=== PATIENT | male | born 1975 | race Caucasian/White ===

== ENCOUNTER 2017-01-21 10:54 | Inpatient (IN) | payer SELFPAY ==
[~2017-01-21] VITALS: Ht 167.6 cm; Wt 83.7 kg
[2017-01-21] MEDS ORDERED: METF500T4 PO (10:57)
[2017-01-21] MEDS ORDERED: LORAZEPAM 2MG/ML CPJ IV STA (11:34)
[2017-01-21] MEDS ORDERED: ONDANSETRON HCL 4MG/2ML VIAL IV ONE (11:45)
[2017-01-21] MEDS ORDERED: SODIUM CHLORIDE 0.9% 1,000 ML IV ONE (11:45)
[2017-01-21] MEDS ORDERED: LORAZEPAM 1MG TABLET PO STA (11:53)
[2017-01-21 12:09] LABS: BASOPHILS % 0.5 % (0.0-2.0); EOSINOPHILS % 0.2 % (0.0-5.0); HEMOGLOBIN. 13.8 g/dL (14.0-18.0); LYMPHOCYTES % 20.7 % (20.0-50.0); MEAN CORPUSCULAR VOLUME 82.2 fL (80.0-94.0); MEAN PLATELET VOLUME 6.3 fl (7.4-10.4); MONOCYTES % 7.5 % (2.0-8.0); NEUTROPHILS % 71.1 % (40.0-76.0); PLATELET 208 x1000/uL (130-400); RED BLOOD CELL COUNT 5.11 mill/uL (4.7-6.1); RED CELL DISTRIBUTION WIDTH 13.7 % (11.6-14.6)
[2017-01-21 12:15] LABS: INR 1.1; PROTHROMBIN TIME 11.7 sec (9.4-11.6)
[2017-01-21 12:30] LABS: CARBON DIOXIDE 26 mEq/L (21-32); CHLORIDE 93 mEq/L (98-107); CREATINE KINASE 209 IU/L (39-308); ETHANOL BLOOD 111 mg/dL
[2017-01-21 12:40] LABS: CLARITY URINE CLEAR (CLEAR); COLOR URINE YELLOW (YELLOW); GLUCOSE URINE NEGATIVE (NEGATIVE); KETONES URINE NEGATIVE (NEGATIVE); LEUKOCYTE ESTERASE URINE NEGATIVE (NEGATIVE); NITRITE URINE NEGATIVE (NEGATIVE); OCCULT BLOOD URINE NEGATIVE (NEGATIVE); PH URINE 6.5 (4.5-8.0); PROTEIN URINE 1+ (NEGATIVE); SPECIFIC GRAVITY URINE 1.009 (1.005-1.030); UROBILINOGEN URINE 0.2 E.U./dL (0.2-1.0)
[2017-01-21 13:14] LABS: *AMPHETAMINES SCREEN URINE NEGATIVE (NEGATIVE); *BARBITURATES SCREEN URINE NEGATIVE (NEGATIVE); *BENZODIAZEPINES SCREEN URINE NEGATIVE (NEGATIVE); *COCAINE SCREEN URINE NEGATIVE (NEGATIVE); CANNABINOID URINE SCREEN NEGATIVE (NEGATIVE); METHADONE URINE SCREEN NEGATIVE (NEGATIVE); OPIATES URINE SCREEN NEGATIVE (NEGATIVE); PHENCYCLIDINE URINE SCREEN NEGATIVE (NEGATIVE)
[2017-01-21] MEDS ORDERED: MIDAZOLAM HCL 2 MG/2 ML VIAL IV ONE (15:45)
[2017-01-21] MEDS ORDERED: IPRATROPIUM/ALBUTEROL 0.5-3(2.5)MG/3ML NEB INH PRN (19:15)
[2017-01-21] MEDS ORDERED: ONDANSETRON HCL 4MG/2ML VIAL IV PRN (19:15)
[2017-01-21] MEDS ORDERED: MAGNESIUM/ALUMINUM HYDROXIDE/SIMETHICONE 30ML UDC PO PRN (19:15)
[2017-01-21] MEDS ORDERED: CLONIDINE 0.1MG TABLET PO PRN (19:15)
[2017-01-21 20:20] VITALS: BP 146/85
[2017-01-21] MEDS ORDERED: MVI, ADULT NO.1 10 ML, FOLIC ACID 1 MG, THIAMINE HCL 100 MG in SODIUM CHLORIDE 0.9% 1,0... IV SCH ×4 (20:30)
[2017-01-21 20:45] VITALS: BP 146/85
[2017-01-21] MEDS: ENOXAPARIN 40MG/0.4ML SYR SUBCUT SCH (21:32)
[2017-01-21] MEDS: CHLORDIAZEPOXIDE 25MG CAPSULE PO SCH (21:32)
[2017-01-21] MEDS: SODIUM CHLORIDE 0.9% 1,000 ML IV SCH (21:32)
[2017-01-21 23:49] LABS: CREATINE KINASE 156 IU/L (39-308); TROPONIN I < 0.02 ng/mL (0.00-0.04)
[2017-01-21 23:51] LABS: CREATINE KINASE MB FRACTION 1.9 ng/mL (0.5-3.6)
[2017-01-22] VITALS: BP 118/76
[2017-01-22] MEDS: ACETAMINOPHEN 325MG TABLET PO PRN (00:17)
[2017-01-22] MEDS ORDERED: DEXTROSE 50% WATER 50ML SYRINGE IV PRN (00:45)
[2017-01-22 04:00] VITALS: BP 146/62
[2017-01-22] MEDS: CHLORDIAZEPOXIDE 25MG CAPSULE PO SCH ×3 (05:43→21:14)
[2017-01-22] MEDS: INSULIN LISPRO 100 UNITS/ML SUBCUT SCH ×4 (05:48→21:45)
[2017-01-22] MEDS: BLOOD SUGAR DIAGNOSTIC STRIP TEST SCH ×4 (05:48→21:04)
[2017-01-22 07:11] LABS: BASOPHILS % 0.4 % (0.0-2.0); EOSINOPHILS % 0.7 % (0.0-5.0); HEMATOCRIT. 38.9 % (42.0-52.0); HEMOGLOBIN. 12.9 g/dL (14.0-18.0); LYMPHOCYTES % 35.9 % (20.0-50.0); MEAN CORPUSCULAR HEMOGLOBIN 27.7 pg (28.0-32.0); MEAN CORPUSCULAR VOLUME 83.4 fL (80.0-94.0); MEAN PLATELET VOLUME 6.8 fl (7.4-10.4); MONOCYTES % 12.4 % (2.0-8.0); NEUTROPHILS % 50.6 % (40.0-76.0); PLATELET 166 x1000/uL (130-400); RED BLOOD CELL COUNT 4.66 mill/uL (4.7-6.1); RED CELL DISTRIBUTION WIDTH 13.3 % (11.6-14.6)
[2017-01-22 07:52] LABS: CARBON DIOXIDE 28 mEq/L (21-32); CHLORIDE 95 mEq/L (98-107); CREATINE KINASE 118 IU/L (39-308); CREATINE KINASE MB FRACTION 1.3 ng/mL (0.5-3.6); HDL CHOLESTEROL 58 mg/dL (40-59); LDL CHOLESTEROL 70 mg/dL (5-100); TROPONIN I < 0.02 ng/mL (0.00-0.04)
[2017-01-22 08:43] VITALS: BP 147/74
[2017-01-22] MEDS: SODIUM CHLORIDE 0.9% 1,000 ML IV SCH ×2 (09:30→22:09)
[2017-01-22] MEDS: METFORMIN HCL 500MG TABLET PO SCH ×2 (09:50→19:04)
[2017-01-22] MEDS: FOLIC ACID 1MG TABLET PO SCH (09:50)
[2017-01-22] MEDS: LORAZEPAM 0.5MG TABLET PO PRN (09:50)
[2017-01-22] MEDS: MULTIVITAMINS,THER W-MINERALS TABLET PO SCH (09:50)
[2017-01-22] MEDS: THIAMINE HCL 100MG TABLET PO SCH (09:50)
[2017-01-22 13:19] VITALS: BP 174/80
[2017-01-22] MEDS ORDERED: FOLI-43 PO (13:26)
[2017-01-22] MEDS ORDERED: THIA100T72 PO (13:26)
[2017-01-22 16:00] VITALS: BP 153/84
[2017-01-22 20:00] VITALS: BP 152/86
[2017-01-22] MEDS: ENOXAPARIN 40MG/0.4ML SYR SUBCUT SCH (21:14)
[2017-01-23] VITALS: BP 140/80
[2017-01-23 04:00] VITALS: BP 144/85
[2017-01-23] MEDS: LORAZEPAM 0.5MG TABLET PO PRN (05:05)
[2017-01-23] MEDS: CHLORDIAZEPOXIDE 25MG CAPSULE PO SCH (06:33)
[2017-01-23] MEDS: BLOOD SUGAR DIAGNOSTIC STRIP TEST SCH (06:37)
[2017-01-23] MEDS: INSULIN LISPRO 100 UNITS/ML SUBCUT SCH (06:37)
[2017-01-23 08:00] VITALS: BP 144/86
[2017-01-23] MEDS: ACETAMINOPHEN 325MG TABLET PO PRN (08:04)
[2017-01-23] MEDS: FOLIC ACID 1MG TABLET PO SCH (08:05)
[2017-01-23] MEDS: MULTIVITAMINS,THER W-MINERALS TABLET PO SCH (08:05)
[2017-01-23] MEDS: THIAMINE HCL 100MG TABLET PO SCH (08:05)
[2017-01-23] MEDS: METFORMIN HCL 500MG TABLET PO SCH (08:05)
[2017-01-23] MEDS: SODIUM CHLORIDE 0.9% 1,000 ML IV SCH (11:09)
[2017-01-23 11:26] VITALS: BP 144/86
[2017-01-23 12:00] VITALS: BP 145/85
== END 2017-01-23 12:13 | disposition home or self-care (01) | DRG 775 ==
LOC: ER 11:05 → 5WST 16:12 → CANRESERV 19:06 → ENRESERV 19:06 → ENRESERVDT 19:51 → ENRESERVTM 19:51
PROVIDERS: ADMIT Internal Medicine; ATTEND Internal Medicine
DX: F10.220 Alcohol dependence with intoxication, uncomplicated (principal); F10.230 Alcohol dependence with withdrawal, uncomplicated; I10 Essential (primary) hypertension; E11.9 Type 2 diabetes mellitus without complications; Y90.9 Presence of alcohol in blood, level not specified; Y90.5 Blood alcohol level of 100-119 mg/100 ml; E87.1 Hypo-osmolality and hyponatremia; F41.1 Generalized anxiety disorder; R00.0 Tachycardia, unspecified; E86.0 Dehydration; Z79.84 Long term (current) use of oral hypoglycemic drugs; Z79.899 Other long term (current) drug therapy; Z89.431 Acquired absence of right foot
CPT/HCPCS: 36415; 71010; 80053; 80061; 80305; 81001; 82550; 82553; 82962; 83690; 84443; 84484; 85025; 85610; 93005; 93970; 96361; 96374; 96375; 97162; 99285; G0482; J1650; J1815; J2250; J2405; J3411; J3490; J7030

== ENCOUNTER 2024-07-10 11:45 | Emergency (ER) | payer MEDICAID ==
[~2024-07-10] VITALS: Ht 160 cm; Wt 75.0 kg
[~2024-07-10 11:45] MED LIST: FOLI-43 PO; METF-414 PO; THIA100T72 PO
[2024-07-10 11:49] VITALS: O2SAT 98
[2024-07-10 12:19] LABS: BASOPHILS % 0.4 % (0.0-2.0); DIFFERENTIAL COMMENT 0; EOSINOPHILS % 1.7 % (0.0-5.0); HEMATOCRIT. 26.9 % (42.0-52.0); HEMOGLOBIN. 8.8 g/dL (14.0-18.0); MEAN CORPUSCULAR HEMOGLOBIN 25.2 pg (28.0-32.0); MEAN CORPUSCULAR HGB CONC 32.6 g/dL (31.0-37.0); MEAN CORPUSCULAR VOLUME 77.5 fL (80.0-94.0); MEAN PLATELET VOLUME 7.4 fl (7.4-10.4); MONOCYTES % 6.1 % (2.0-8.0); NEUTROPHILS % 63.8 % (40.0-76.0); PLATELET 209 x1000/uL (130-400); RED BLOOD CELL COUNT 3.47 mill/uL (4.7-6.1); RED CELL DISTRIBUTION WIDTH 18.7 % (11.6-14.6); WHITE BLOOD COUNT 4.8 x1000/uL (4.5-11.0)
[2024-07-10 12:31] LABS: CHLORIDE 102 mEq/L (98-107); POTASSIUM 3.9 mEq/L (3.5-5.1); SODIUM 135 mEq/L (136-145)
[2024-07-10 12:32] LABS: CALCIUM 7.8 mg/dL (8.7-10.4); CARBON DIOXIDE 25 mEq/L (21-32)
[2024-07-10 12:37] LABS: CREATININE 0.7 mg/dL (0.6-1.3); GLUCOSE 148 mg/dL (70-105); UREA NITROGEN BLOOD 12 mg/dL (9-23)
[2024-07-10 12:40] LABS: TROPONIN I HIGH SENSITIVITY 14 ng/L (3.0-53)
[2024-07-10 15:25] VITALS: BP 137/96; PULSE 97; RESP 19; TEMP 36.8; O2SAT 98
[2024-07-11] MEDS ORDERED: FUROSEMIDE 20MG/2ML VIAL IVP SCH (09:00)
== END 2024-07-10 16:00 | disposition short-term general hospital (02) ==
LOC: ER 11:45 → EDBEDREQ 12:29 → CANBEDREQ 13:32 → ER 16:00
DX: R06.02 Shortness of breath (principal); I11.0 Hypertensive heart disease with heart failure; I25.2 Old myocardial infarction; I50.9 Heart failure, unspecified; E11.9 Type 2 diabetes mellitus without complications; Z79.84 Long term (current) use of oral hypoglycemic drugs; Z79.899 Other long term (current) drug therapy
CPT/HCPCS: 80048; 83880; 85025; 84484; 36415; 71045; 93005; 99285; Z7610 ×2